=== PATIENT | female | born 1950 | race Two or more races ===

== ENCOUNTER 2022-12-02 12:50 | Emergency (ER) | payer MEDICARE, MEDICAID ==
[~2022-12-02] VITALS: Ht 160 cm; Wt 67.8 kg
[2022-12-02] MEDS ORDERED: SODIUM CHLORIDE 0.9% 500 ML IVB ONE (13:30)
[2022-12-02] MEDS ORDERED: MORPHINE SULFATE 4 MG/ML SYR/VIAL IV ONE (13:30)
[2022-12-02] MEDS ORDERED: ONDANSETRON HCL 4 MG/2 ML VIAL IV ONE (13:30)
[2022-12-02 13:43] LABS: Basophils # (auto) 0.1 10 ^3/uL (0-0.2); Basophils % (auto) 0.7 % (0.0-2.0); Eosinophils # (auto) 0.1 10 ^3/uL (0-0.8); Hematocrit 42.6 % (36.0-46.0); Hemoglobin 14.3 g/dL (12.2-16.2); Lymphocytes # (auto) 2.3 10 ^3/uL (0.4-5.4); Lymphocytes % (auto) 31.6 % (10.0-50.0); Mean Corpuscular Hemoglobin 29.3 pg (28.0-32.0); Mean Corpuscular Hgb Conc. 33.7 g/dL (32.0-36.0); Mean Corpuscular Volume 86.8 fL (80.0-100.0); Monocytes # (auto) 0.3 10 ^3/uL (0-1.3); Monocytes % (auto) 4.4 % (0.0-12.0); Neutrophils # (auto) 4.4 10 ^3/uL (1.6-8.6); Neutrophils % (auto) 61.3 % (37.0-80.0); Nucleated Red Blood Cells % 0.1 %; Red Cell Distribution Width 13.4 % (11.8-14.3); White Blood Cell 7.1 10^3/uL (4.4-10.8)
[2022-12-02 14:07] LABS: Alanine Aminotransferase 43 U/L (7-40); Albumin 4.7 g/dL (3.2-4.8); Alkaline Phosphatase 84 U/L (46-116); Anion Gap 6.9 (5-15); Aspartate Aminotransferase 34 U/L (13-40); BUN/Creatinine Ratio 18.2 (10.0-20.0); Blood Urea Nitrogen 12 mg/dL (9-23); Calcium 9.5 mg/dL (8.5-10.1); Carbon Dioxide 24.1 mmol/L (20-30); Chloride 107 mmol/L (98-107); Glucose 90 mg/dL (74-106); Lipase 61 U/L (12-53); Potassium 4.1 mmol/L (3.5-5.1); Sodium 138 mmol/L (136-145); Total Protein 7.9 g/dL (5.7-8.2)
[2022-12-02 14:58] VITALS: TEMP 97.9; O2SAT 98
[2022-12-02 14:59] VITALS: BP 162/82; PULSE 72; RESP 17
[2022-12-02 16:36] LABS: Urine Bacteria NONE SEEN /hpf (None Seen); Urine Blood Negative /uL (Negative); Urine Clarity Clear (Clear); Urine Color Colorless (Yellow); Urine Protein, UAD Negative (Negative); Urine Specific Gravity 1.005 (1.001-1.035); Urine Urobilinogen Normal (Negative); Urine WBC 20 /hpf (0 - 5); Urine pH 6.5 (5.0-8.0)
[2022-12-02] MEDS ORDERED: CIPR-173 PO (16:48)
== END 2022-12-02 17:05 | disposition home or self-care (01) ==
LOC: ER 12:50
DX: N39.0 Urinary tract infection, site not specified (principal); E11.9 Type 2 diabetes mellitus without complications; I10 Essential (primary) hypertension; Z90.710 Acquired absence of both cervix and uterus
CPT/HCPCS: 36415; 74176; 80053; 81001; 83690; 85025; 96361; 96374; 96375; 99285; J2270; J2405; J7040